=== PATIENT | male | born 1970 | race Caucasian/White ===

== ENCOUNTER 2018-04-18 11:45 | Emergency (ER) | payer OTHER ==
[~2018-04-18] VITALS: Ht 170.2 cm; Wt 78.6 kg
[2018-04-18 11:52] VITALS: Ht 170.2 cm; Wt 78.6 kg
[2018-04-18 14:52] VITALS: BP 136/93
== END 2018-04-18 14:52 | disposition home or self-care (01) ==
LOC: ED 11:45
DX: M25.561 Pain in right knee (principal)
CPT/HCPCS: Q0092